=== PATIENT | female | born 1955 | race Caucasian/White ===

== ENCOUNTER 2022-09-05 16:52 | Inpatient (IN) ==
[2022-09-05 18:50] LABS: Hematocrit 37.2 % (35-45); Hemoglobin 12.1 g/dL (11.5-14.3); Mean Corpuscular Hemoglobin 27.6 pg (27-33); Mean Corpuscular Hgb Conc 32.6 g/dL (31-36); Mean Corpuscular Volume 84.8 fL (80-97); Mean Platelet Volume 6.9 fL (7.5-11.2); Platelet Count 437 10^3/uL (150-450); Red Blood Count 4.38 10^6/uL (3.63-4.92); Red Cell Distribution Width 15.9 % (12-17); White Blood Count 9.3 10^3/uL (3.8-11.8)
[2022-09-05 19:14] LABS: Albumin 4.1 g/dL (3.2-5.2); Albumin/Globulin Ratio 1.1 (1-3); Calcium 9.9 mg/dL (8.6-10.3); Creatinine, Serum 0.68 mg/dL (0.51-0.95); Globulin 3.8 g/dL (2-4); Potassium 3.7 mmol/L (3.5-5.0); Total Bilirubin 0.4 mg/dL (0.2-1.0); Total Protein 7.9 g/dL (6.4-8.9); eGFR CKD-EPI 94.2 (>60)
[2022-09-05 19:48] LABS: ABS Basophils 0.1 10^3/uL (0.0-0.1); ABS Eosinophils 0.2 10^3/uL (0.0-0.5); ABS Lymphocytes 1.6 10^3/uL (1.0-4.8); ABS Monocytes 0.5 10^3/uL (0.0-0.9); ABS Neutrophils 6.9 10^3/uL (1.5-7.6); ABS Nucleated RBC 0.01 10^3/ul; Eosinophil % 2.1 %; Lymphocyte % 16.9 %; Nucleated Red Blood Cells % 0.1 /100 WBC (0.0-0.4)
[2022-09-05] MEDS ORDERED: Heparin 5000 UNITS/ML 1 mL VIAL IV SCH (20:00)
[2022-09-05] MEDS ORDERED: Acetaminophen IV 1 GM/100ML 1,000 MG/100 ML BAG IV PRN (20:28)
[2022-09-05] MEDS: Heparin DRIP 25,000 UNITS BAG 25,000 UNITS/500 ML BAG IV SCH (21:51)
[2022-09-05] MEDS ORDERED: Iohexol 350 (CONTRAST) 500 ML MDV IV ONE (23:06)
[2022-09-06] MEDS: Heparin DRIP 25,000 UNITS BAG 25,000 UNITS/500 ML BAG IV SCH (19:06)
[2022-09-07 05:39] LABS: ABS Basophils 0.1 10^3/uL (0.0-0.1); ABS Eosinophils 0.3 10^3/uL (0.0-0.5); ABS Lymphocytes 2.2 10^3/uL (1.0-4.8); ABS Monocytes 0.4 10^3/uL (0.0-0.9); ABS Neutrophils 4.3 10^3/uL (1.5-7.6); ABS Nucleated RBC 0.01 10^3/ul; Eosinophil % 4.7 %; Hemoglobin 11.1 g/dL (11.5-14.3); Lymphocyte % 30.1 %; Mean Corpuscular Hemoglobin 27.7 pg (27-33); Mean Corpuscular Hgb Conc 32.6 g/dL (31-36); Mean Corpuscular Volume 84.9 fL (80-97); Mean Platelet Volume 6.9 fL (7.5-11.2); Nucleated Red Blood Cells % 0.2 /100 WBC (0.0-0.4); Platelet Count 385 10^3/uL (150-450); Red Cell Distribution Width 16.1 % (12-17); White Blood Count 7.3 10^3/uL (3.8-11.8)
[2022-09-07] MEDS: Heparin DRIP 25,000 UNITS BAG 25,000 UNITS/500 ML BAG IV SCH (15:52)
[2022-09-08 07:30] LABS: ABS Eosinophils 0.4 10^3/uL (0.0-0.5); ABS Lymphocytes 1.9 10^3/uL (1.0-4.8); ABS Monocytes 0.4 10^3/uL (0.0-0.9); Eosinophil % 4.8 %; Hematocrit 32.5 % (35-45); Hemoglobin 10.7 g/dL (11.5-14.3); Lymphocyte % 24.3 %; Mean Corpuscular Hemoglobin 28.3 pg (27-33); Mean Corpuscular Volume 85.8 fL (80-97); Mean Platelet Volume 7.7 fL (7.5-11.2); Platelet Count 373 10^3/uL (150-450); Red Blood Count 3.79 10^6/uL (3.63-4.92); Red Cell Distribution Width 15.9 % (12-17); White Blood Count 7.7 10^3/uL (3.8-11.8)
[2022-09-08] MEDS: Heparin DRIP 25,000 UNITS BAG 25,000 UNITS/500 ML BAG IV SCH (14:47)
[2022-09-08 15:08] LABS: Activated Partial Thrombo Time 71.7 seconds (26.0-38.0)
[2022-09-08 15:58] LABS: Ferritin 165.7 ng/mL (11-307)
[2022-09-09] MEDS ORDERED: Lidocaine 1% VIAL 10 MG/ML VIAL 30 ML ONE (11:38)
[2022-09-09] MEDS ORDERED: Heparin 2 UNITS/ML IVPREMIX 3,000 UNIT/1,500 ML BAG IV ONE (11:38)
[2022-09-09] MEDS ORDERED: Iohexol 350 (CONTRAST) 100 ML PAK IV ONE ×2 (11:38→13:14)
[2022-09-09] MEDS ORDERED: fentaNYL 100 mcg/2 ml 50 MCG/ML VIAL ONE (11:50)
[2022-09-09] MEDS ORDERED: Midazolam 5 mg/5 ml VIAL 1 mg/ml 5 ml VIAL (5 mg) ONE (11:50)
[2022-09-09] MEDS: Heparin DRIP 25,000 UNITS BAG 25,000 UNITS/500 ML BAG IV SCH (14:00)
[2022-09-09 16:05] LABS: Free Protein S Antigen 91 % (65 - 160)
[2022-09-10] MEDS ORDERED: Iohexol 350 (CONTRAST) 500 ML MDV IV ONE (09:22)
[2022-09-10 10:35] LABS: Protein C Activity 133 % (70 - 150)
[2022-09-10 12:03] LABS: DRVVT Screen Ratio 1.01 ratio (<1.20); LAC APTT 55 sec (25 - 37); Prothrombin Time(LAC) 11.5 sec (9.4 - 12.5); Thrombin Time (Bovine), P 77.8 sec
[2022-09-10 12:04] LABS: Reptilase Time, P 20.6 sec
[2022-09-10 13:48] VITALS: BP 130/80
== END 2022-09-10 16:23 | disposition home or self-care (01) | DRG 271 ==
LOC: EDHOLD 16:52 → ED 16:52 → SUATTDRO 19:56 → MEDTELE 22:59
PROVIDERS: ADMIT Internal Medicine; ATTEND Internal Medicine